=== PATIENT | female | born 1965 | race Caucasian/White ===

== ENCOUNTER 2021-06-23 15:29 | Emergency (ER) | payer OTHER ==
[~2021-06-23] VITALS: Ht 162.6 cm; Wt 52.2 kg
[2021-06-23 15:57] VITALS: BP_SYST 149
[2021-06-23] MEDS ORDERED: GENTAMICIN SULFATE 0.3% Non-Formulary OPHT. 5 ML DROPS OP ONE (18:30)
[2021-06-23] MEDS ORDERED: GENT5DRO7 RIGHT EYE (18:36)
[2021-06-23 18:51] VITALS: BP_SYST 143
== END 2021-06-23 18:55 | disposition home or self-care (01) ==
LOC: SED 15:29
DX: S05.01XA Injury of conjunctiva and corneal abrasion without foreign body, right eye, initial encounter (principal); E03.9 Hypothyroidism, unspecified; Z79.899 Other long term (current) drug therapy; X58.XXXA Exposure to other specified factors, initial encounter; Y93.89 Activity, other specified; Y92.89 Other specified places as the place of occurrence of the external cause; Y99.8 Other external cause status
CPT/HCPCS: 99283